=== PATIENT | male | born 1970 | race American Indian/Alaskan Native ===

== ENCOUNTER 2016-12-05 19:20 | Emergency (ER) | payer OTHER ==
[2016-12-05 19:31] VITALS: BP 128/71; PULSE 94; RESP 16; TEMP 99.8; O2SAT 100
[2016-12-05] MEDS ORDERED: Albuterol 0.083% Inhal Sol (2.5 mg/3 mL) UD INH STA (20:07)
[2016-12-05] MEDS ORDERED: Albuterol 0.083% Inhal Sol (2.5 mg/3 mL) UD ONE (20:12)
--- NOTE | 2016-12-05 20:33 | ED PDOC ---
HPI: Chest Pain Time Seen by Provider: 12/05/16 20:03 Chief Complaint (Nursing): Chest Pain Chief Complaint (Provider): Sinus pressure History Per: Patient History/Exam Limitations: no limitations Onset/Duration Of Symptoms: Days (1) Additional Complaint(s): Patient is a 46 y/o male with a past medical history of sinusitis presenting to the emergency department for sinus pressure on his forehead, nasal congestion, sore throat, fever, and a cough that is accompanied by chest pain. Denies other complaints. PCP: none provided Past Medical History Reviewed: Historical Data, Nursing Documentation, Vital Signs Vital Signs: Last Vital Signs Temp 99.8 F H 12/05/16 19:28 Pulse 94 H 12/05/16 19:28 Resp 16 12/05/16 19:28 BP 128/71 12/05/16 19:28 Pulse Ox 100 12/05/16 21:18 - Medical History PMH: Gastritis - Surgical History Other surgeries: Arm surgery - Family History Family History: States: Unknown Family Hx - Social History Current smoker - smoking cessation education provided: No Ex-Smoker (has not smoked in the last 12 months): No Alcohol: Social Drugs: Denies - Home Medications Home Medications: Ambulatory Orders Medication Instructions Recorded DiphenhydrAMINE [Benadryl] 2 tab PO Q4H PRN #24 cap 01/21/16 Epinephrine HCl [Epipen 0.3 mg MR ONCE PRN #2 pkg 01/21/16 Auto-Injector] Famotidine [Pepcid] 20 mg PO BID #10 tab 01/21/16 predniSONE [predniSONE Tab] 3 tab PO DAILY #12 tab 01/21/16 Amoxicillin/Potassium Clav 1 each PO BID #7 tab 12/05/16 [Amox-Clav 200-28.5 mg Tab Chew] Fluticasone Nasal [Flonase] 1 - 2 actuation NS DAILY #1 spr 12/05/16 Ibuprofen [Motrin Tab] 600 mg PO Q6 #30 tab 12/05/16 Prednisone [Deltasone] 20 mg PO DAILY #3 tablet 12/05/16 - Allergies Allergies/Adverse Reactions: Allergies Allergy/AdvReac Type Severity Reaction Status Date / Time No Known Allergies Allergy Verified 01/21/16 20:05 Review of Systems ROS Statement: Except As Marked, All Systems Reviewed And Found Negative Constitutional: Positive for: Fever ENT: Positive for: Nose Congestion, Throat Pain, Other (sinus pressure on forehead) Cardiovascular: Positive for: Chest Pain (associated with cough) Respiratory: Positive for: Cough Physical Exam - Reviewed Nursing Documentation Reviewed: Yes Vital Signs Reviewed: Yes - Physical Exam Appears: Positive for: Non-toxic, No Acute Distress Head Exam: Positive for: ATRAUMATIC, NORMAL INSPECTION, NORMOCEPHALIC Skin: Positive for: Normal Color, Warm, Dry Eye Exam: Positive for: EOMI, PERRL, Conjunctival injection (bilateral), Other ( tearing bilaterally) ENT: Positive for: Other (tenderness to maxillary and ethmoid sinuses) Neck: Positive for: Normal, Painless ROM, Supple Cardiovascular/Chest: Positive for: Regular Rate, Rhythm. Negative for: Murmur Respiratory: Positive for: Normal Breath Sounds. Negative for: Accessory Muscle Use, Respiratory Distress Gastrointestinal/Abdominal: Positive for: Normal Exam, Soft. Negative for: Tenderness Back: Positive for: Normal Inspection Extremity: Positive for: Normal ROM. Negative for: Pedal Edema Neurologic/Psych: Positive for: Alert, Oriented (x3) - ECG O2 Sat by Pulse Oximetry: 100 (RA) Pulse Ox Interpretation: Normal Medical Decision Making Medical Decision Making: Time: 20:07 Initial impression: Sinusitis. Influenza. Initial plan: Chest X-Ray Albuterol treatment Motrin 600 mg PO Prednisone 60 mg PO Influenza lab Reevaluation 21:07 Chest X-ray reviewed. Findings noted as follows: Lungs: No consolidation. Pleural space: No definite pleural effusion. No pneumothorax. Heart: No cardiomegaly. Mediastinum: Unremarkable. Bones/joints: No acute fracture. IMPRESSION: 1. No definite acute cardiopulmonary disease. 2. If symptoms persist, consider CT for further evaluation. 2114: Pt. feeling better, results given. Explained that sinusitis likely viral in etiology not requiring Abx. Discussed expectant management and told not take Augmentin unless symptoms persist beyond a week or if he develops fever >102 for more than 24 hours. Return precautions given and referral to ENT given. Scribe Attestation: Documented by Becky Bertrand, acting as a scribe for Juan Calderon MD. Provider Scribe Attestation: All medical record entries made by the Scribe were at my direction and personally dictated by me. I have reviewed the chart and agree that the record accurately reflects my personal performance of the history, physical exam, medical decision making, and the department course for this patient. I have also personally directed, reviewed, and agree with the discharge instructions and disposition. Disposition - Clinical Impression Clinical Impression: Sinusitis - Disposition Referrals: [facility] [Outside] Ronni Zayas MD [Staff Provider] - Disposition Time: 21:15 Condition: STABLE Additional Instructions: As discussed- your sinusitis is MOST LIKELY viral in etiology. Please try the prednisone, nasal spray, and anti-inflammatory for 48 hours before filling the prescription for Augmentin. Please make an appointment to see an ENT. Continue to take your allergy medications as well. Prescriptions: Amoxicillin/Potassium Clav [Amox-Clav 200-28.5 mg Tab Chew] 1 each PO BID #7 tab Fluticasone Nasal [Flonase] 1 - 2 actuation NS DAILY #1 spr Ibuprofen [Motrin Tab] 600 mg PO Q6 #30 tab Prednisone [Deltasone] 20 mg PO DAILY #3 tablet Instructions: Rhinosinusitis (ED) Forms: [facility] ([place])
--- NOTE | 2016-12-05 21:07 | RAD ---
EXAM: XR Chest, 2 Views CLINICAL HISTORY: 46 years old, male; Signs and symptoms; Cough and shortness of breath; Symptoms not specified; Additional info: SOB, sinusitis TECHNIQUE: Frontal and lateral views of the chest. COMPARISON: No relevant prior studies available. FINDINGS: Lungs: No consolidation. Pleural space: No definite pleural effusion. No pneumothorax. Heart: No cardiomegaly. Mediastinum: Unremarkable. Bones/joints: No acute fracture. IMPRESSION: 1. No definite acute cardiopulmonary disease. 2. If symptoms persist, consider CT for further evaluation.
== END 2016-12-05 22:00 | disposition home or self-care (01) ==
LOC: H.ER 19:20
DX: J32.9 Chronic sinusitis, unspecified (principal); R05 Cough; R07.89 Other chest pain; R50.9 Fever, unspecified